=== PATIENT | female | born 1970 | race Caucasian/White ===

== ENCOUNTER 2022-11-06 08:55 | Outpatient (CLI) | payer BC, SELFPAY ==
--- NOTE | 2022-11-06 09:15 | MR_ITS ---
[facility] [address] [facility] [address] Phone:?[phone] Fax:?[phone] Referring Physician Information: En Tellez M.D. [address] [facility] [address] Phone:?[phone] Fax:?[phone] Patient:Nancy Rivera D.O.B:?1970 Sex:?Female Phone:?[phone] [facility] MRN:?[id number] Exam Date:?11/06/2022 EXAM: MRI EXAMINATION OF THE LEFT KNEE CLINICAL INFORMATION: Left knee pain. Chronic symptoms. Twisting injury. Evaluate medial meniscus tear or MCL injury. TECHNICAL INFORMATION: Coronal PD and STIR. Axial PD and T2 fat saturation. Sagittal PD and PD fat saturation images acquired. Comparison is made with July 02, 2018. INTERPRETATION: Bones: Mild marrow edema signal localized involving the posterior lateral aspect of the medial tibial plateau. There is no evidence for a fracture. No other abnormal bone marrow edema pattern is identified. Ligaments and tendons: Residua of a chronic sprain injury with mild thickening involving the proximal one third of the medial collateral ligament. The iliotibial band, fibular collateral ligament, biceps femoris tendon and popliteus tendon all are intact. Residua of an ACL injury with complete rupture just proximal to the midportion of the ligament. This may be more subacute. The posterior cruciate ligament is intact. Extensor Mechanism: The patellar and quadriceps tendons are intact. The medial and lateral retinacula are intact. Knee Joint: There is a small knee joint effusion. There is a moderate-sized popliteal cyst. Mild to moderate adjacent soft tissue fluid and edema signal in keeping with cyst leakage. There is no discrete loose body seen within the joint. Medial Compartment: There is peripheral vertical tearing involving the posterior body and continuing throughout the majority of the posterior horn medial meniscus. No displaced flap fragment or parameniscal cyst. There is no focal chondral defect. No other significant changes of chondromalacia. Lateral Compartment: There is no evidence for discrete lateral meniscal tear. No displaced flap fragment or parameniscal cyst. There is no focal chondral defect. No other significant changes of chondromalacia. Patellofemoral articulation: Series 4 image 11 demonstrates a tiny and shallow partial-thickness chondral fissure lateral to the midportion of midline patella. No other significant chondromalacia. CONCLUSION: 1. Residua of ACL injury with complete rupture just proximal to the midportion of the ligament. This is a new finding compared to the prior exam and may be more subacute. 2. Development of peripheral vertical tearing involving the posterior body and continuing throughout the majority of the posterior horn medial meniscus. 3. No lateral meniscal tear. The PCL is intact. 4. There is a tiny and shallow partial-thickness chondral fissure just lateral to the midline patella. 5. A moderate-sized popliteal cyst demonstrates mild to moderate leakage. KES Electronically signed on 11/08/2022 2:55:00 PM by Oscar Hernadez M.D.
== END 2022-11-06 08:56 | disposition home or self-care (01) ==
LOC: MRI 08:56
PROVIDERS: PCP Family Medicine; Visit Provider Family Medicine
DX: M25.562 Pain in left knee (principal); S83.512A Sprain of anterior cruciate ligament of left knee, initial encounter; S83.222A Peripheral tear of medial meniscus, current injury, left knee, initial encounter; M71.22 Synovial cyst of popliteal space [Baker], left knee
CPT/HCPCS: 73721

== ENCOUNTER 2023-01-25 09:31 | Outpatient (CLI) | payer BC, SELFPAY ==
--- NOTE | 2023-01-25 09:45 | CRLHL7_ITS ---
For Patients: As a result of the Cures Act, medical imaging exams and procedure reports are released immediately into your electronic medical record. You may view this report before your referring provider. If you have questions, please contact your health care provider. BILATERAL SCREENING MAMMOGRAM WITH COMPUTER-AIDED DETECTION AND TOMOSYNTHESIS TECHNIQUE: CC and MLO views were obtained. These mammographic images have been obtained using full-field digital technique. These mammographic images were interpreted with the benefit of computer-aided detection. Breast Tomosynthesis was used in this interpretation. COMPARISON FILM: 10/31/18, 03/21/17, 02/16/16. FINDINGS: There are scattered areas of fibroglandular density IMPRESSION: There is no radiographic evidence for malignancy. ASSESSMENT: BI-RADS Category 1: Negative RECOMMENDATION: Routine screening mammogram in 1 year. A lay language report of this examination will be provided to the patient. Adam Conley M.D. Diagnostic Radiologist [email or web address] EDISON/tia T: [id number] Transcribed: 2:03 p.jose daniel weber/Dictated by: Adam Conley MD @ 01/25/2023 11:39:00 AM (Electronically Signed)
== END 2023-01-25 09:32 | disposition home or self-care (01) ==
LOC: MAMMO 09:33
PROVIDERS: PCP Family Medicine; Visit Provider Family Medicine
DX: Z12.31 Encounter for screening mammogram for malignant neoplasm of breast (principal)
CPT/HCPCS: 77063; 77067

== ENCOUNTER 2023-02-05 06:15 | Day surgery (SDC) | payer BC, SELFPAY ==
[2023-02-05] VITALS (18 sets, daily range): BP systolic 104–153; BP diastolic 72–107; PULSE 63–86; RESP 14–16; TEMP 36–36.9; O2SAT 95–99; BMI 35.4
[2023-02-05] MEDS: LACTATED RINGERS 1000 ML 1,000 ML 100 ML IV ×2 (07:00→08:32)
[2023-02-05] MEDS: SODIUM CHLORIDE 0.9 % (FLUSH) 10 ML SYRINGE IVF (07:01)
[2023-02-05] MEDS: fentaNYL 100 MCG/2 ML inj IVP (07:18)
[2023-02-05] MEDS: MIDAZOLAM HCL 1 MG/ML inj IVP (07:19)
--- NOTE | 2023-02-05 07:20 | SUR.PREOP ---
TIME?OUT:?0717 PT/RN/MDA?VERIFICATION?OF?SURGICAL?SITE,?PROCEDURE,?AND?CONSENT OBTAINED?PRIOR?TO?INVASIVE?PROCEDURE. all in agreement.
--- NOTE | 2023-02-05 07:45 | CRLHL7_ITS ---
For Patients: As a result of the Cures Act, medical imaging exams and procedure reports are released immediately into your electronic medical record. You may view this report before your referring provider. If you have questions, please contact your health care provider. Indication: Left Knee ACL, Allograft, Medial Meniscus Repair vs PMM Technique: One fluoroscopic image of the left knee. Fluoroscopic time 9.5 seconds. IMPRESSION: Fluoroscopic guidance for left knee surgery. Dictated by Adam Conley MD @ 02/05/2023 9:23:45 AM (Electronically Signed)
[2023-02-05] MEDS: CEFAZOLIN 2 GM in 0.9 % SODIUM CHLORIDE Mini-bag 100 ML IVPB (07:52)
--- NOTE | 2023-02-05 08:03 | P.NB_ITS ---
Nerve Block Nerve Block Time Seen by Provider: 07: Date Seen: 02/05/23 Type of block requested by surgeon for post-operative analgesia: popliteal Time out performed: Yes Verification of patient name: Yes Verification of date of : Yes Site marking: site marked Name of person performing procedure: Navi Continuous monitoring Was continuous monitoring of O2 sat, B/P, biotechnologist, recorded every 15 minutes?: Yes Procedure Checklist: sterile prep, needles and gloves Ultrasound guided. Images saved: Yes Medications given in 5ml increments after negative aspiration: Ropivicaine %: 0.5 mL: 20 Needle gauge: 22 Patient tolerated procedure well: Yes Additional comments: Needle noted adjacent to nerve Block Charges Block Charge (with Pro Fee): Sciatic Nerve Use of Ultrasound Machine for Block: Yes- US Guidance/pain block
--- NOTE | 2023-02-05 08:04 | P.NB_ITS ---
Nerve Block Nerve Block Time Seen by Provider: 07:23 Date Seen: 02/05/23 Type of block requested by surgeon for post-operative analgesia: adductor canal Side: left Time out performed: Yes Verification of patient name: Yes Verification of date of : Yes Site marking: site marked Name of person performing procedure: Navi Continuous monitoring Was continuous monitoring of O2 sat, B/P, monitoring coordinator, recorded every 15 minutes?: Yes Procedure Checklist: sterile prep, needles and gloves Ultrasound guided. Images saved: Yes Medications given in 5ml increments after negative aspiration: Ropivicaine %: 0.5 mL: 20 Needle gauge: 20 Decadron (mg): 10 Precedex (mcg): 25 Patient tolerated procedure well: Yes Additional comments: Needle noted adjacent to nerve Block Charges Block Charge (with Pro Fee): Femoral Nerve Use of Ultrasound Machine for Block: Yes- US Guidance/pain block
--- NOTE | 2023-02-05 08:04 | W.ANESCHARGE ---
Anesthesia Charges Start Date/Time Anesthesia Start Date: 02/05/23 Anesthesia Start Time: 07:31 Stop Date/Time Anesthesia Stop Date: 02/05/23 Anesthesia Stop Time: 09:32
--- NOTE | 2023-02-05 09:09 | P.ORPRC_ITS ---
Procedure Note Date of procedure: 02/05/23 Procedure: PREOPERATIVE DIAGNOSIS: 1. Left knee ACL tear 2. Left knee medial meniscus tear, somewhat complex pattern posterior horn to midbody-approaching posterior root but root intact. POSTOPERATIVE DIAGNOSIS: 1. Left knee ACL tear 2. Left knee medial meniscus tear, somewhat complex pattern posterior horn to midbody-approaching posterior root but root intact. PROCEDURE: 1. Left knee arthroscopically assisted ACL reconstruction with graftlink allograft 2. Left knee arthroscopic partial medial meniscectomy 3. 20944 - intraoperative fluoroscopy up to 1 hour. SURGEON: Rodrigo Esquivel M.D. INDUSTRIAL SALES REPRESENTATIVE: Leeroy JOHNSTON; Zac Peng Pa-c. Of note, an pharmacy sales assistant was critical for this case to aid in patient positioning, knee manipulation, instrument exchange, and closure. ANESTHESIA: General plus adductor canal block EBL: 10 mL TOURNIQUET: 70 min at 300 torr IMPLANTS: Arthrex femoral tight rope button and tibial ABS button along with a backup on the tibial fixation with a 4.75 mm peak swivelock suture anchor and internal brace COMPLICATIONS: None evident INDICATIONS: The patient is a pleasant 52-year-old female. They have experienced a left knee injury resulting in knee instability. MRI was obtained and confirmed complete ACL disruption, consistent with the physical exam. The MRI also suggested a medial meniscus tear of the posterior horn approaching the midbody. Given the findings, as well as the patient's desire to remain physically active with cutting/pivoting type activities, surgery was recommended. FINDINGS: Exam under anesthesia revealed positive China's grade 2 B. Thud- clunk pivot shift. Stable posterior drawer. Stable to varus and valgus stress at 0 and 30?. The diagnostic arthroscopy showed ACL tear with a positive empty wall sign. PCL was intact and robust. Grade 3 chondromalacia patella median ridge in a small subcentimeter region. Otherwise healthy trochlear groove articular cartilage. Healthy articular cartilage medial compartment. Complex tearing the posterior horn approaching midbody medial meniscus. Posterior root was intact otherwise. Lateral compartment showed healthy articular cartilage and intact lateral meniscus with only mild fraying near the posterior root and anterior root. DESCRIPTION OF PROCEDURE: After a thorough discussion of risks, benefits, and alternatives, the patient was brought to the operating room and placed upon the operating table. Induction of anesthesia was undertaken as previously noted. 2 g IV Ancef was administered within 1 hr of incision preoperatively. Appropriate time-out was performed identifying proper patient, site, and procedure. The left lower extremity was prepped and draped in the appropriate sterile fashion using ChloraPrep. The limb was exsanguinated and tourniquet inflated. Anterolateral and anteromedial portals were established with an 11 blade, and a diagnostic arthroscopy was performed. This identified the findings as noted above. Following the diagnostic arthroscopy, a partial medial meniscectomy was performed with a combination of basket forceps and torpedo shaver. After this, the meniscus was reprobed and found be stable. We then turned our attention to the ACL reconstruction. The graft had been thawing on the back table inside the package in warm saline. Once this was properly thawed, it was prepared with the passing sutures and the femoral tight rope button. It was then placed on tension, and sized. It was approximately a 9 mm diameter graft. While the graft was being prepared, simultaneously, the remaining ACL stump was debrided with a combination of shaver and basket forceps. After evaluating the current fibers of the existing ACL stump, we drilled the tunnels in an independent manner for anatomic tunnel positioning. A 9 mm flip cutter was utilized for the femoral tunnel and for the tibial tunnel. After preparing the graft and drilling tunnels, the graft was passed without difficulty and the femoral button was directly visualized to exit the femoral tunnel and the button was flipped. C-arm fluoroscopic imaging confirmed proper flipping of the femoral button and was apposed against the femoral cortex. The knee was then cycled 35+ times with tension on the graft. The tibial ABS button was then placed, and the tibial sutures secured over this with the knee in full extension. The white sutures were tied over top of the button, and all 4 suture strands were backed up through 4.75 mm peek SwiveLock suture anchor. Excellent tension on the graft was achieved. A Chian test was performed again, and found to be stable grade 1A. The graft was reprobed on the inside of the knee and again found to be taut and stable. At this stage, closure was performed with 2-0 Vicryl and 4-0 Monocryl to close the subcutaneous and subcuticular layers, respectively. Dressings were applied, tourniquet deflated, and the T scope hinged knee brace was applied. The patient was awoken from anesthesia and transferred to the PACU in stable condition. PLAN: 1. Toe-touch weightbear operative extremity until quad control is restored. Crutch / walker ambulation assistance PRN. 2. Ice, acetominophen and/or ibuprofen, and oxycodone for pain as needed. 3. Knee range of motion and quad sets/straight leg raise regularly 4. Follow up with PA visit in 1-2 weeks for a wound check.
--- NOTE | 2023-02-05 09:36 | W.ANESCHARGE ---
Anesthesia Charges Start Date/Time Anesthesia Start Date: 02/05/23 Anesthesia Start Time: 07:31 Stop Date/Time Anesthesia Stop Date: 02/05/23 Anesthesia Stop Time: 09:32
--- NOTE | 2023-02-05 10:11 | SUR.OPER ---
PATIENT QUESTIONS ANSWERED SATISFACTORILY PREOPERATIVELY.? PATIENT BROUGHT TO OR #2 PER CART.? Patient positioned supine on OR #2 bed.? The perioperative?team supported arms bilaterally on arm boards.? Final approval of positioning by surgeon.? CONTINUOUS IRRIGATION OF THE LEFT KNEE DURING THE PROCEDURE WITH NACL.
[2023-02-05] MEDS: IBUPROFEN 200 MG TABLET 400 MG PO (10:52)
--- NOTE | 2023-02-05 12:16 | SUR.PHASEII ---
1045: upon arrival from PACU pt reports bee sting type pain on left lateral knee. Under cruz wrap and dressing could feel the boarder of the dressing. readjusted the dressing. incisional pain she is feeling. see EMAR.
== END 2023-02-05 12:19 | disposition home or self-care (01) ==
PROVIDERS: PCP Family Medicine; Visit Provider Orthopaedic Surgery Sports Medicine
PROC: (CPT 27428; principal; 2023-02-05 07:45)
DX: S83.512A Sprain of anterior cruciate ligament of left knee, initial encounter (principal); S83.232A Complex tear of medial meniscus, current injury, left knee, initial encounter; G89.18 Other acute postprocedural pain
CPT/HCPCS: 29888; 29881; 01400; 64445; 64447; 73560; 76000; 76942; A9270; C1713; C1762; J0690; J1100; J2250; J2371; J2405; J2704; J2795; J3010; J7120; L1833

== ENCOUNTER 2023-03-20 11:14 | Emergency (ER) | payer BC, SELFPAY ==
[2023-03-20 11:37] VITALS: BP 149/104; PULSE 98; RESP 16; TEMP 35.9; O2SAT 98; BMI 36.3
[2023-03-20 13:23] VITALS: BP 144/89; PULSE 99; RESP 12; TEMP 36.8; O2SAT 97
--- NOTE | 2023-03-20 14:48 | ED_ITS ---
HPI - General Adult General Chief complaint: Neck Injury/Pain Stated complaint: Pinched nerve Time Seen by Provider: 03/20/23 14:46 History of Present Illness HPI narrative: This is a pleasant 52-year-old female with a past medical history thoracic back pain, hyperlipidemia, migraine headaches, and C7 cervical radiculopathy who presents to the ER today with neck pain. Per the patient, she reports she began to have neck pain radiating down her left arm about a month ago in early February without any own trauma. She was evaluated at that time by her doctors and thought to have cervical radiculopathy. Her symptoms responded remarkably well to a burst of steroids and initiation of gabapentin. She had been essentially pain-free for couple of weeks until she had recurrence of pain when she woke up after sleeping Sunday night. She is having bad pain in the lateral side of her neck that radiates down the lateral side of her left shoulder, posterior arm, and down toward the radial side of her forearm. The pain is achy and burning. No associated numbness or weakness. No pain down the right arm. No other neurologic symptoms. No headache. No trauma. No fever. In review of medical record I see that she saw her primary care provider, Dr. Staples, yesterday for this neck pain. He has ordered an outpatient MRI and that is scheduled for 04/02. He start her on prednisone 60 mg daily, yesterday. According to those records she had been taking gabapentin for her pain, but it is ineffective. She has been taking increased dose gabapentin but finds it to be ineffective. She is scheduled for an MRI on 03/12/27 but cannot wait that long because of the intensity of her pain. Related Data Home Medications Medication Instructions Recorded Confirmed cholecalciferol (vitamin D3) 125 5,000 unit PO DAILY 10/31/22 03/20/23 mcg (5,000 unit) tablet sumatriptan succinate 100 mg tablet 100 mg PO .As Needed as needed PRN 10/31/22 03/20/23 green tea leaf extract 250 mg 250 mg PO .QD 01/23/23 03/20/23 capsule (Green Tea) Previous Rx's Medication Instructions Recorded duloxetine 60 mg capsule,delayed 60 mg PO DAILY #90 caps 01/23/23 release alprazolam 0.5 mg tablet 0.5 mg PO BID PRN anxiety #10 tabs 02/21/23 gabapentin 300 mg capsule 300 mg PO TID PRN pain #60 caps 02/21/23 prednisone 50 mg tablet 50 mg PO QDAY #7 tabs 03/19/23 hydromorphone 2 mg tablet 2 mg PO Q4-6H PRN pain #10 tabs 03/20/23 (Dilaudid) Allergies Allergy/AdvReac Type Severity Reaction Status Date / Time No Known Drug Allergies Allergy Verified 03/19/23 09:11 [facility] Medical History (Updated 03/20/23 @ 15:22 by Mike Yi MD) Left ACL tear ?S83.512A - Sprain of anterior cruciate ligament of left knee, initial encounter (ICD-10) Cervical radiculopathy at C7 ?M54.12 - Radiculopathy, cervical region (ICD-10) Gastrointestinal disorder ?K92.9 - Disease of digestive system, unspecified (ICD-10) Migraine ?G43.909 - Migraine, unspecified, not intractable, without status migrainosus (ICD-10) Sore throat ?J02.9 - Acute pharyngitis, unspecified (ICD-10) Menstrual migraine ?G43.829 - Menstrual migraine, not intractable, without status migrainosus (ICD-10) Deep vein thrombosis (DVT) ?I82.409 - Acute embolism and thrombosis of unspecified deep veins of unspecified lower extremity (ICD-10) Surgical History (Updated 03/12/23 @ 01:25 by Adam Staples MD) H/O arthroscopy of left knee (02/05/23) ?Z98.890 - Other specified postprocedural states (ICD-10) H/O dilation and curettage (06/24/19) ?Z98.890 - Other specified postprocedural states (ICD-10) History of section (1989) ?Z98.891 - History of uterine scar from previous surgery (ICD-10) Family History Aunt Breast cancer Mother Coronary artery disease, Onset Age: 49 Father Hemochromatosis Mother Myocardial infarction, Onset Age: 50 Other Adopted Colonic polyp Social History (Updated 01/23/23 @ 13:55 by Angela Mayer ~ [facility]) 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: , 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, 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 Social drinker 2-4/week Does not have regular exercise program What is your current living situation?: I presently have a place to live Problems where you live: no known problems In the past 12 months, utilities in danger of being shut off: no In past 12 months, lack of transportation kept you from medical appts, meetings, work, or getting things needed for daily living: no In the past 12 mos, have been you worried that your food would run out before you had money to buy more?: never true In the past 12 mos, the food you bought just didn't last and you didn't have money to buy more?: never true Smoking Status: Never smoker Do you use any of these nicotine containing products: None Second hand tobacco smoke exposure: No How often do you have a drink containing alcohol: 2-3 times a week Alcohol type: hard liquor How many standard drinks containing alcohol do you have on a typical day: 5 or 6 How often do you have six or more drinks on one occasion: Weekly AUDIT-C Alcohol total score: 8 Non-prescribed substance use: marijuana (any form) Caffeine: Yes (coffee) How often does anyone, including family, friends and others, physically hurt you : never How often does anyone, including family, friends and others, insult or talk down to you: never How often does anyone, including family, friends and others, threaten you with harm: never How often does anyone, including family, friends and others, scream or curse at you: never Little interest or pleasure in doing things: more than half the days Feeling down, depressed, or hopeless: more than half the days service: No Exam Narrative: Exam Narrative: Constitutional: Appears well-developed and well-nourished. Alert. Conversant, but uncomfortable appearing. Non toxic. HENT: Head: Atraumatic. Nose: Nose normal. Mouth/Throat: Oral mucosa is clear and moist. no trismus. Pharynx normal. Eyes: Conjunctivae normal. EOM normal. Pupils equal, round, and reactive to light. No scleral icterus. Neck: Normal range of motion. Neck supple. No tracheal deviation present. Mild tenderness over left lateral neck and trapezius. Patient complains of pain radiating from there down the lateral side of her deltoid, lateral upper arm, and radial side of her forearm. Cardiovascular: Normal rate, regular rhythm. No gallop. No friction rub. No murmur heard. Symmetric radial artery pulses Pulmonary/Chest: Effort normal. No stridor. No respiratory distress. No wheezes. No rales. No rhonchi . No tenderness. Abdominal: Soft. Bowel sounds normal. No distension. No mass. No tenderness. No rebound. No guarding. Musculoskeletal: RUE: Normal range of motion. No tenderness. No deformity LUE: Normal range of motion. No tenderness. No deformity RLE: Normal range of motion. No edema. No tenderness. No deformity LLE: Normal range of motion. No edema. No tenderness. No deformity Lymph: No cervical adenopathy. Neurological: Alert and oriented to person, place, and time. Normal strength. CN II-VII intact. No sensory deficit. GCS eye subscore is 4. GCS verbal subscore is 5. GCS motor subscore is 6. Normal coordination Mental status normal. Attention normal. Alert and oriented x3. GCS 15. Memory normal. Speech fluent. Cognition normal. Cranial Nerves intact II-XII except I did not formally test gag or visual acuity. EOMI. Palate elevates symmetrically and tongue protrudes in the midline. Strength: 5/5 trapezius on the right and left 5/5 deltoid on the right and left 5/5 biceps on the right and left 5/5 triceps on the right and left 5/5 health care social worker on the right and left 5/5 thumb opposition on the right and le ft 5/5 finger abduction on the right and le ft 5/5 strength in both lower extremities. Sensation intact to light touch in both upper extremities (C4-T1) Sensation intact to light touch in Both lower extremities (L4-S1). coordination normal. Gait normal. Skin: Skin is warm and dry. No rash noted. No pallor. Normal capillary refill. Psychiatric: Normal mood. Normal affect, allowing for pain. Const: Vital Signs, click to edit/add: Vital Signs - 24 hr 03/20/23 11:37 03/20/23 13:23 Temperature 96.6 F L 98.3 F Pulse Rate [Right Pulse Oximeter] 98 99 Respiratory Rate 16 12 Blood Pressure [Ri ght Upper Arm] 149/104 H 144/89 H Pulse Oximetry 98 97 Oxygen Delivery Me thod Room Air Room Air Course Vital Signs Vital signs: Initial Vital Signs Temperature 96.6 F L 03/20/23 11:37 Temperature Source Temporal Artery Scan 03/20/23 11:37 Pulse Rate 98 03/20/23 11:37 Pulse Rhythm Regular 03/20/23 11:37 Respiratory Rate 16 03/20/23 11:37 Blood Pressure 149/104 H 03/20/23 11:37 Blood Pressure Mean 119 H 03/20/23 11:37 Blood Pressure Position Sitting 03/20/23 11:37 Pulse Oximetry 98 03/20/23 11:37 Oxygen Delivery Method Room Air 03/20/23 11:37 Vital Signs Temperature 96.6 F L 03/20/23 11:37 Pulse Rate 98 03/20/23 11:37 Respiratory Rate 16 03/20/23 11:37 Blood Pressure 149/104 H 03/20/23 11:37 Pulse Oximetry 98 03/20/23 11:37 Oxygen Delivery Method Room Air 03/20/23 11:37 Temperature 98.3 F 03/20/23 13:23 Pulse Rate 99 03/20/23 13:23 Respiratory Rate 12 03/20/23 13:23 Blood Pressure 144/89 H 03/20/23 13:23 Pulse Oximetry 97 03/20/23 13:23 Oxygen Delivery Method Room Air 03/20/23 13:23 Medical Decision Making MDM Narrative Medical decision making narrative: 52-year-old female presents to the ER today with pain from her left neck radiating down her left arm. Her current episode of pain began about 3 days ago on Sunday without any trauma, after she awoke from sleep. She had had a similar episode of pain about a month or 6 weeks ago that resolved with conservative treatment with steroids and pain medication (gabapentin). Her current episode is much more severe with more unrelenting pain that disrupts her sleep and activities of daily living. Fortunately she has not have any symptoms of an neurologic deficit in her arm or legs. Clinical suspicion here is for a cervical radiculopathy, likely affecting the C6 dermatome. At this point I do not think she has cervical dissection, vertebral dissection. Doubt any C-spine injury, in the absence of trauma. No evidence for shingles or cellulitis. No evidence for pharyngitis or deep space neck infection or other infection causing her symptoms. At this point only she need CTA, CT neck soft tissue, laboratory workup. Will try increasing her home pain medications by the addition of Dilaudid. Discussed with the patient that opiates are sometimes ineffective in no related pain. We also discussed sedation, drowsiness, constipation, addiction, and other potential opiate side effects. Patient also is distressed by the prospect of having to wait 2 weeks get her MRI. I was able to call the MRI department today. They have an opening tomorrow at 6:15 p.m. on 03/21. They will add the patient to the schedule. We were able to schedule her for that MRI which will be tomorrow 03/21 at 6:15 p.m.. Discussed this plan of care with the patient. She believes with Dilaudid she will be able to make through until tomorrow to get her MRI done as an outpatient. She will follow up her primary care providers to get the results of that MRI. Precautions for return to the ER reviewed questions answered. Discharge Plan Discharge Clinical Impression: Cervical radiculopathy Patient Disposition: Home, Self-Care Condition: Stable Instructions: Cervical Radiculopathy (ED) Additional Instructions: You are scheduled to have an MRI of your neck tomorrow 03/21 at 6:00 p.m.. Come back to the [facility] in check in through the ER triage desk to get an outpatient MRI tomorrow at 6:00 p.m.. Please bring a patient transportation driver with you if you have taking any meds that cause drowsiness. If you have worsening pain, weakness down your arm, high fever, or any concerns, come back to the ER right away. Follow-up with Dr. Staples or your regular doctor as soon as possible. Stop oxycodone and switched to Dilaudid. This is a stronger version of pain medicine. Do not mix the 2 meds together because they can cause excessive drowsiness. Use caution with opiate pain killers because they cause drowsiness, dizziness, vomiting, constipation, and can be addictive. Prescriptions: New hydromorphone [Dilaudid] 2 mg tablet 2 mg PO Q4-6H PRN (Reason: pain) Qty: 10 0RF No Action sumatriptan succinate 100 mg tablet 100 mg PO .As Needed as needed PRN Rx Instructions: ONE TAB AT ONSET OF HEADACHE, MAY REPEAT ONCE IN 2 HRS, MAX 200 MG/24 HRS cholecalciferol (vitamin D3) 125 mcg (5,000 unit) tablet 5,000 unit PO DAILY prednisone 50 mg tablet 50 mg PO QDAY Qty: 7 0RF green tea leaf extract [Green Tea] 250 mg capsule 250 mg PO .QD duloxetine 60 mg capsule,delayed release(DR/EC) 60 mg PO DAILY Qty: 90 3RF alprazolam 0.5 mg tablet 0.5 mg PO BID PRN (Reason: anxiety) Qty: 10 0RF gabapentin 300 mg capsule 300 mg PO TID PRN (Reason: pain) Qty: 60 1RF Follow Up/Referrals: En Tellez MD [Primary Care Provider] - Stand Alone Forms: [id number] Info Instructions
== END 2023-03-20 15:40 | disposition home or self-care (01) ==
LOC: ED 15:24
PROVIDERS: Emergency Provider Emergency Medicine; PCP Family Medicine
DX: M54.12 Radiculopathy, cervical region (principal)
CPT/HCPCS: 99283

== ENCOUNTER 2023-03-21 12:27 | Emergency (ER) | payer BC, SELFPAY ==
[2023-03-21 12:33] VITALS: BP 143/94; PULSE 92; RESP 18; TEMP 36.7; O2SAT 93; BMI 36.3
--- NOTE | 2023-03-21 12:55 | ED_ITS ---
HPI - General Adult General Chief complaint: Neck Injury/Pain Stated complaint: Pinched nerve in neck Time Seen by Provider: 03/21/23 12:30 History of Present Illness HPI narrative: Patient is a 52-year-old female has had suspect left cervical radiculopathy. She is scheduled for an MRI at 6:00 p.m. [facility]. They live in [facility]. She comes back today after being here yesterday with continued pain. The dilaudid she took did not really help that much. She is on prednisone still and on gabapentin. She had this happened earlier a month or so ago and did get relief from the prednisone and gabapentin. She has had no real weakness in her arm but describes pain in her neck left side radiating down to her shoulder and into her forearm and into her medial hand. Dr. Yi thought this might be a C6 radiculopathy I would agree that makes sense. Again she has had no weakness or arm but she has been unable to find a comfortable position and it is painful. No swelling of the arm, no history of bleeding or clotting problems. She had some mild degenerative change on her x-ray yesterday. Related Data Home Medications Medication Instructions Recorded Confirmed cholecalciferol (vitamin D3) 125 5,000 unit PO DAILY 10/31/22 03/20/23 mcg (5,000 unit) tablet sumatriptan succinate 100 mg tablet 100 mg PO .As Needed as needed PRN 10/31/22 03/20/23 green tea leaf extract 250 mg 250 mg PO .QD 01/23/23 03/20/23 capsule (Green Tea) Previous Rx's Medication Instructions Recorded duloxetine 60 mg capsule,delayed 60 mg PO DAILY #90 caps 01/23/23 release alprazolam 0.5 mg tablet 0.5 mg PO BID PRN anxiety #10 tabs 02/21/23 gabapentin 300 mg capsule 300 mg PO TID PRN pain #60 caps 02/21/23 prednisone 50 mg tablet 50 mg PO QDAY #7 tabs 03/19/23 hydromorphone 2 mg tablet 2 mg PO Q4-6H PRN pain #10 tabs 03/20/23 (Dilaudid) Allergies Allergy/AdvReac Type Severity Reaction Status Date / Time No Known Drug Allergies Allergy Verified 03/19/23 09:11 Review of Systems Status of ROS: Reports: 6 or more systems reviewed and unremarkable except as noted in History and below PFSH [facility] Medical History Left ACL tear ?S83.512A - Sprain of anterior cruciate ligament of left knee, initial encounter (ICD-10) Cervical radiculopathy at C7 ?M54.12 - Radiculopathy, cervical region (ICD-10) Migraine ?G43.909 - Migraine, unspecified, not intractable, without status migrainosus (ICD-10) Deep vein thrombosis (DVT) ?I82.409 - Acute embolism and thrombosis of unspecified deep veins of unspecified lower extremity (ICD-10) Surgical History H/O arthroscopy of left knee (02/05/23) ?Z98.890 - Other specified postprocedural states (ICD-10) H/O dilation and curettage (06/24/19) ?Z98.890 - Other specified postprocedural states (ICD-10) History of section (1989) ?Z98.891 - History of uterine scar from previous surgery (ICD-10) Family History Aunt Breast cancer Mother Coronary artery disease, Onset Age: 49 Father Hemochromatosis Mother Myocardial infarction, Onset Age: 50 Other Adopted Colonic polyp Social History Narrative: , 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, 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-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 Social drinker 2-4/week Does not have regular exercise program What is your current living situation?: I presently have a place to live Problems where you live: no known problems In the past 12 months, utilities in danger of being shut off: no In past 12 months, lack of transportation kept you from medical appts, meetings, work, or getting things needed for daily living: no In the past 12 mos, have been you worried that your food would run out before you had money to buy more?: never true In the past 12 mos, the food you bought just didn't last and you didn't have money to buy more?: never true Smoking Status: Never smoker Do you use any of these nicotine containing products: None Second hand tobacco smoke exposure: No How often do you have a drink containing alcohol: 2-3 times a week Alcohol type: hard liquor How many standard drinks containing alcohol do you have on a typical day: 5 or 6 How often do you have six or more drinks on one occasion: Weekly AUDIT-C Alcohol total score: 8 Non-prescribed substance use: marijuana (any form) Caffeine: Yes (coffee) How often does anyone, including family, friends and others, physically hurt you : never How often does anyone, including family, friends and others, insult or talk down to you: never How often does anyone, including family, friends and others, threaten you with harm: never How often does anyone, including family, friends and others, scream or curse at you: never Little interest or pleasure in doing things: more than half the days Feeling down, depressed, or hopeless: more than half the days service: No Exam Narrative: Exam Narrative: Objective: Patient has mild tenderness along her cervical strap muscles on the lower left She has normal strength sensation in the upper extremity on the left, normal sensation no weakness 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 Vital signs show no fever. No swelling of the hand or arm. No redness or erythema. Const: Vital Signs, click to edit/add: Vital Signs - 24 hr 03/21/23 12:33 03/21/23 13:17 03/21/23 14:22 Temperature 98.1 F Pulse Rate 92 Pulse Rate [Pulse Oximeter] 92 85 Respiratory Rate 18 18 Blood Pressure 118/88 Blood Pressure [Ri ght Upper Arm] 143/94 H 138/93 H Pulse Oximetry 93 93 94 Oxygen Delivery Me thod Room Air Room Air 03/21/23 15:05 Temperature Pulse Rate Pulse Rate [Pulse Oximeter] 96 Respiratory Rate 20 Blood Pressure Blood Pressure [Ri ght Upper Arm] 122/89 Pulse Oximetry 94 Oxygen Delivery Me thod Room Air Course Vital Signs Vital signs: Initial Vital Signs Temperature 98.1 F 03/21/23 12:33 Temperature Source Temporal Artery Scan 03/21/23 12:33 Pulse Rate 92 03/21/23 12:33 Pulse Rhythm Regular 03/21/23 12:33 Respiratory Rate 18 03/21/23 12:33 Blood Pressure 143/94 H 03/21/23 12:33 Blood Pressure Mean 110 H 03/21/23 12:33 Blood Pressure Position Supine 03/21/23 12:33 Pulse Oximetry 93 03/21/23 12:33 Oxygen Delivery Method Room Air 03/21/23 12:33 Vital Signs Temperature 98.1 F 03/21/23 12:33 Pulse Rate 92 03/21/23 12:33 Respiratory Rate 18 03/21/23 12:33 Blood Pressure 143/94 H 03/21/23 12:33 Pulse Oximetry 93 03/21/23 12:33 Oxygen Delivery Method Room Air 03/21/23 12:33 Temperature 98.1 F 03/21/23 12:33 Pulse Rate 96 03/21/23 15:05 Respiratory Rate 20 03/21/23 15:05 Blood Pressure 122/89 03/21/23 15:05 Pulse Oximetry 94 03/21/23 15:05 Oxygen Delivery Method Room Air 03/21/23 15:05 Medications Administered Medications: Discontinued Medications Generic Name Dose Route Start Last Admin Trade Name Freq PRN Reason Stop Dose Admin Aspirin 324 mg 03/21/23 13:23 03/21/23 13:42 Aspirin 81 Mg Tab.Chew PO 03/21/23 13:24 324 mg ONCE ONE Administration Ketorolac Tromethamine 60 mg 03/21/23 13:15 03/21/23 13:19 Ketorolac 60 Mg/2 Ml Inj IM 03/21/23 13:16 60 mg ONCE ONE Administration Morphine Sulfate 10 mg 03/21/23 13:04 03/21/23 13:23 Morphine 10 Mg/Ml Inj IM 03/21/23 13:05 10 mg ONCE ONE Administration Medical Decision Making [facility] Narrative Medical decision making narrative: 52-year-old female with what appears to be a left cervical radiculopathy. MRI s can be the treatment of and procedure of diagnostically of choice. Would in the interim give her morphine 10 mg IM and Toradol 60 mg IM. She has Dilaudid at home for tonight, follow-up with primary care doctor tomorrow by phone to get results. Disposition pending findings at this point I do not think other diagnostic studies are indicated as she has her MRI at 6:00 p.m.. Addendum 1:27 p.m. called back to the room the patient is concerned about her left anterior chest, although it does radiate from her neck and down her left arm. She is more concerned about a cardiac issue and wonders about getting an EKG. I think that is very reasonable will get a chest x-ray one view, troponin I, will give her aspirin 324 chewable and await the pain medication to work and disposition pending findings will also check laboratory studies including CBC Chem profile CRP and D-dimer. Addendum 3:00 p.m. EKG by my read shows normal sinus rhythm no acute ST T wave changes. The patient has a negative troponin, negative D-dimer, negative CBC and ER profile negative liver function tests, negative CRP. Patient's chest x- ray was unremarkable. I think at this point we can discharge her to home she has her MRI scan in a couple of hours. She can continue dilaudid, prednisone, gabapentin at home. Would recommend calling her regular clinic Dr. Staples is office and get a report tomorrow and have them call her with the results as it is available. Lab Data Labs: Lab Results 03/21/23 Range/Units 13:50 WBC 9.18 (4.50-11.00) K/uL RBC 5.02 (4.00-5.20) m/uL Hgb 16.4 H (12.0-16.0) gm/dL Hct 48.1 (33.0-51.0) % MCV 96 (80-100) fL MCH 33 (26-34) pg MCHC 34 (32-36) gm/dL RDW Coeff of Sowmya 11.8 (11.5-15.5) % Plt Count 264 (140-440) K/uL Neut % (Auto) 86.2 H (42.0-72.0) % Lymph % (Auto) 11.3 L (20-44) % Cataño % (Auto) 1.1 (0.0-11.0) % Eos % (Auto) 0.1 (0.0-7.0) % Baso % (Auto) 0.1 (0.0-3.0) % Neut # (Auto) 7.90 H (1.7-7.0) K/uL Lymph # (Auto) 1.00 (0.90-2.90) K/uL Cataño # (Auto) 0.10 (0.00-0.90) K/UL Eos # (Auto) 0.01 (0.00-0.50) K/uL Baso # (Auto) 0.01 (0.00-0.30) K/uL Abs Immat Gran (auto) 0.11 (0.00-0.30) K/uL Imm/Tot Granulo (auto) 1.2 % Diff Slide Review Acceptable Review (Acceptable) D-Dimer Quant (PE/DVT) 0.32 (0.00-0.50) ug/ml Sodium 142 (135-149) mmol/L Potassium 4.2 (3.6-5.1) mmol/L Chloride 105 (96-114) mmol/L Carbon Dioxide 26 (20-32) mmol/L Anion Gap 11 (7-15) mEq/L BUN 16 (7-30) mg/dL Creatinine 0.6 (0.5-1.5) mg/dL Estimated Creat Clear 97.57 Estimated GFR 107 ml/min Glucose 141 H (60-115) mg/dL Calcium 9.4 (8.4-10.6) mg/dL Total Bilirubin 0.4 (0.1-1.5) mg/dL Direct Bilirubin 0.0 (0.0-0.5) mg/dL AST 24 (12-35) U/L ALT 24 (4-35) U/L Alkaline Phosphatase 69 (40-150) U/L Troponin I < 0.01 L (0.01-0.04) ng/mL C-Reactive Protein 0.6 (0.5-1.0) mg/dL NT-Pro-B Natriuret Pep < 20 pg/mL Total Protein 7.4 (6.0-8.3) g/dL Albumin 4.8 (3.3-5.0) g/dL Discharge Plan Discharge Clinical Impression: Left cervical radiculopathy Patient Disposition: Home w/ Parent or Adult Condition: Stable Additional Instructions: Continue prednisone gabapentin, continue Dilaudid as needed, appointment for MRI tonight as planned. Follow-up by phone with primary care doctor tomorrow. Activity Level: Light activity Discharge Diet: Regular Prescriptions: No Action sumatriptan succinate 100 mg tablet 100 mg PO .As Needed as needed PRN Rx Instructions: ONE TAB AT ONSET OF HEADACHE, MAY REPEAT ONCE IN 2 HRS, MAX 200 MG/24 HRS cholecalciferol (vitamin D3) 125 mcg (5,000 unit) tablet 5,000 unit PO DAILY prednisone 50 mg tablet 50 mg PO QDAY Qty: 7 0RF green tea leaf extract [Green Tea] 250 mg capsule 250 mg PO .QD duloxetine 60 mg capsule,delayed release(DR/EC) 60 mg PO DAILY Qty: 90 3RF hydromorphone [Dilaudid] 2 mg tablet 2 mg PO Q4-6H PRN (Reason: pain) Qty: 10 0RF alprazolam 0.5 mg tablet 0.5 mg PO BID PRN (Reason: anxiety) Qty: 10 0RF gabapentin 300 mg capsule 300 mg PO TID PRN (Reason: pain) Qty: 60 1RF Follow Up/Referrals: En Tellez MD [Primary Care Provider] - Stand Alone Forms: [employer] Info Instructions
[2023-03-21 13:17] VITALS: BP 138/93; PULSE 85; O2SAT 93
[2023-03-21] MEDS: KETOROLAC 60 MG/2 ML inj IM (13:19)
[2023-03-21] MEDS: MORPHINE 10 MG/ML inj IM (13:23)
--- NOTE | 2023-03-21 13:23 | CRLHL7_ITS ---
For Patients: As a result of the Century Cures Act, medical imaging exams and procedure reports are released immediately into your electronic medical record. You may view this report before your referring provider. If you have questions, please contact your health care provider. Indication: Chest pain Technique: Chest 1 view Comparison: None Findings/Impression: Cardiovascular and mediastinum: Heart size and vasculature are normal in caliber and appearance. Lungs and pleural space: Lungs are clear. No sign of infiltrate or mass. No sign of pleural effusion. No pneumothorax. Bones and soft tissues: No acute findings. Dictated by Xu Lin MD @ 03/21/2023 2:06:59 PM (Electronically Signed)
[2023-03-21] MEDS: ASPIRIN 81 MG TAB.CHEW 324 MG PO (13:42)
[2023-03-21 14:02] LABS: Basophils Absolute Auto 0.01 K/uL (0.00-0.30); Basophils Percent Auto 0.1 % (0.0-3.0); Eosinophils Absolute Auto 0.01 K/uL (0.00-0.50); Eosinophils Percent Auto 0.1 % (0.0-7.0); Hematocrit 48.1 % (33.0-51.0); Hemoglobin* 16.4 gm/dL (12.0-16.0); Immature Granulocytes Abs Auto 0.11 K/uL (0.00-0.30); Immature Granulocytes Pct Auto 1.2 %; Lymphocytes Percent Auto 11.3 % (20-44); Mean Corpuscular HGB Conc 34 gm/dL (32-36); Mean Corpuscular Hemoglobin 33 pg (26-34); Mean Corpuscular Volume 96 fL (80-100); Monocytes Percent Auto 1.1 % (0.0-11.0); Neutrophils Percent Auto 86.2 % (42.0-72.0); Platelet Count* 264 K/uL (140-440); RDW Coefficient of Variation % 11.8 % (11.5-15.5); Red Blood Count 5.02 m/uL (4.00-5.20); White Blood Count* 9.18 K/uL (4.50-11.00)
[2023-03-21 14:08] LABS: Slide Review Reflex Yes
[2023-03-21 14:21] LABS: Chloride* 105 mmol/L (96-114)
[2023-03-21 14:22] VITALS: BP 118/88; PULSE 92; RESP 18; O2SAT 94
[2023-03-21 14:22] LABS: Albumin* 4.8 g/dL (3.3-5.0); Sodium* 142 mmol/L (135-149)
[2023-03-21 14:23] LABS: Potassium* 4.2 mmol/L (3.6-5.1)
[2023-03-21 14:24] LABS: Creatinine* 0.6 mg/dL (0.5-1.5); Est. Creatinine Clearance* 97.57; Estimated Glomerular Filt Rate 107 ml/min
[2023-03-21 14:25] LABS: Alanine Aminotransferase* 24 U/L (4-35); Alkaline Phosphatase* 69 U/L (40-150); Anion Gap 11 mEq/L (7-15); Aspartate Amino Transferase* 24 U/L (12-35); Bilirubin Total* 0.4 mg/dL (0.1-1.5); Blood Urea Nitrogen* 16 mg/dL (7-30); Carbon Dioxide* 26 mmol/L (20-32); Total Protein* 7.4 g/dL (6.0-8.3)
[2023-03-21 14:26] LABS: Calcium* 9.4 mg/dL (8.4-10.6); D Dimer Quantitative* 0.32 ug/ml (0.00-0.50); Glucose* 141 mg/dL (60-115)
[2023-03-21 14:28] LABS: C Reactive Protein* 0.6 mg/dL (0.5-1.0)
[2023-03-21 14:38] LABS: Slide Review Acceptable Review (Acceptable)
[2023-03-21 14:47] LABS: NT Pro B Type NatriureticPept* < 20 pg/mL; Troponin I* < 0.01 ng/mL (0.01-0.04)
[2023-03-21 15:05] VITALS: BP 122/89; PULSE 96; RESP 20; O2SAT 94
== END 2023-03-21 15:10 | disposition home or self-care (01) ==
LOC: ED 13:16
PROVIDERS: Emergency Provider Family Medicine; PCP Family Medicine
DX: M54.12 Radiculopathy, cervical region (principal)
CPT/HCPCS: 36415; 71045; 72141; 80048; 80076; 83880; 84484; 85025; 85379; 86140; 93005; 96372; 99284; 99285; A9270; J1885; J2270

== ENCOUNTER 2023-04-13 08:30 | Outpatient (RCR) | payer BC, SELFPAY | END 2023-08-11 23:59 | disposition home or self-care (01) | PROVIDERS: PCP Family Medicine; Visit Provider Orthopaedic Surgery Sports Medicine | DX: S83.512A Sprain of anterior cruciate ligament of left knee, initial encounter (principal); Z98.890 Other specified postprocedural states; M25.562 Pain in left knee; Z51.89 Encounter for other specified aftercare | CPT/HCPCS: 97110; 97112; 97162; J0690; J1100; J2250; J2371; J2405; J2704; J3010 ==

== ENCOUNTER 2024-02-19 09:38 | Outpatient (CLI) | payer BC, SELFPAY ==
--- OUTSIDE RECORDS SUMMARY | 2024-02-20 10:18 | XMS_ITS | Clinical Summary ---
Author Organization [employer] [facility] Address [place], [place] [address] Care Team Providers Care Rv Servicer Name Role Phone Unavailable Primary Care Provider Unavailabl e Allergies No known active allergies Medications Medication Sig Dispensed Refills Start Date End Date Status SUMAtriptan (IMITREX) 50 mg tabletIndications:Men strual migraine without status migrainosus, not intractable TAKE ONE TO TWO TABLETS BY MOUTH EVERY 2 HOURS NEEDED FOR HEADACHE. MAXIMUM OF 200MG IN 24 HOURS 9 tablet 2 06/01/2017 Active cyclobenzaprine (FLEXERIL) 10 mg tabletIndications:Nec k muscle strain, sequela TAKE ONE TABLET BY MOUTH AT BEDTIME NEEDED FOR MUSCLE SPASM 30 tablet 5 07/18/2017 Active buPROPion (WELLBUTRIN XL) 300 mg Extended-Release tabletIndications:Dep ression with anxiety TAKE 1 TABLET BY MOUTH ONCE DAILY 90 tablet 1 11/21/2017 Active NUVARING vaginal ring 08/23/2017 Act syed DULoxetine (CYMBALTA) 60 mg Delayed-release capsuleIndications:De pression, unspecified depression type,Other mixed anxiety disorders Take 1 capsule by mouth once daily. 90 capsule 1 11/21/2017 Active LORazepam (ATIVAN) 1 mg tabletIndications:Dep ression with anxiety TAKE 1 TABLET BY MOUTH AT BEDTIME NEEDED 30 tablet 05/15/2018 Active Active Problems Problem Noted Date Diagnosed Date Allergic rhinitis 12/31/2013 Depression with anxiety 10/12/2011 Immunizations Name Administration Dates Next Due Influenza,CCIIV4 PRESERV FREE 02/23/2017 Tdap 10/12/2011 Family History * Patient is adopted Medical History Relation Name Comments Heart Disease Mother [place] Other Mother endometriosis, uterus removed Cancer Paternal Aunt Relation Name Status Comments Mother Paternal Aunt Social History Tobacco Use Types Packs/Day Years Used Date Smoking Tobacco: Never Smokeless Tobacco: Never Tobacco Cessation:Counseling Given: Yes Comments:previous social smoker Alcohol Use Standard Drinks/Week Comments Yes 0 (1 standard drink = 0.6 oz pur e alcohol) 1-3 times per week PHQ-2 Answer Date Recorded PHQ-2 Score 3 07/09/2018 Sex and Gender Information Value Date Recorded Sex Assigned at Not on file Gender Identity Not on file Sexual Orientation Not on file Obstetrics History Para Term AB IAB SAB Ectopic Multiple Livin g Live Births 2 2 2 Date Outcome GA Total Labor Labor//3rd Weight Sex Type Anes PTL Monika A1 A5 Name Clin 986 Para M CS-Uns pec 990 Para M CS-Uns pec Last Filed Vital Signs Vital Sign Reading Time Taken Comments Blood Pressure 128/83 05/02/2017 11:12 AM [facility] Pulse 80 05/02/2017 11:12 AM [facility] Temperature 36.7 ??C (98.1 ??F) 01/11/2017 3:02 PM CD T Respiratory Rate - - Oxygen Saturation 97% 03/21/2017 10: 27 AM [facility] Inhaled Oxygen Concentration - - Weight 98.8 kg (217 lb 12.8 oz) 017 11:12 AM [facility] Height 167 cm (5' 5.75) 03/21/2017 10: 27 AM [facility] Body Mass Index 35.42 03/21/2017 10:27 AM [facility] Plan of Treatment Health Maintenance Due Date Last Done Comments HIV for age 15-65 1984 Hepatitis C screening for age 18-79 07/15/1987 Colonoscopy through age 75 2014 BMI (ht and wt on same day) for age 18+ 03/21/2018 03/21/2017, 01/11/2017, 02/16/2016 Mammogram for age 45-75 03/21/2018 03/21/20 17, 02/16/2016, 01/14/2015, Additional history exists Depression screening for age 12+ 11/21/2018 11/21/2017, 11/20/2017, 06/13/2017, Additional history exists Zoster (shingles) series for age 50+ (1 of 2) 07/15/2019 Lipids for age 45-75 02/15/2021 02/16/2016, 11/13/19 12 Tetanus booster 10/11/2021 10/12/2011 Pap test for age 21-65 04/10/2022 9, 04/10/2019, 01/14/2015, Additional history exists COVID-19 vaccine series (2023- season) 2024 Influenza for age 50-64 01/06/2024 02/23/2017 Tdap Completed 10/12/2011 Pneumococcal series for age 6-64 Aged Out No longer eligible based on patient's age to complete this topic Procedures Procedure Name Priority Date/Time Associated Diagnosis Comments [employer] PROFESSOR THIN PREP PAP SCREEN IMAGED Routine 04/10/2019 9:00 AM [facility] XR MAMMO BILAT SCREENING Routine 03/21/2017 11:06 AM [facility] Visit for screening mammogram LIPID PANEL W REFLEX MEASURED LDL Routine 02/16/2016 4:42 PM CDT Screening for lipid disorders from Last 3 Months or Most Recently Relevant to Health Maintenance Results * [employer] PROFESSOR THIN PREP PAP SCREEN IMAGED (04/10/2019 9:00 AM [facility]) Case Report Gynecologic Cytology Report ? Case: [id number] ? Authorizing Provider: ??Kari Parra PA-C ?Collected: ? 04/10/2019 0900 ? Ordering Location: ? [facility] ?Received: ?04/10/2019 1704 ? First Screen: ?Ashish Bueno ? Rescreen: ?Pat Diaz ? Specimen: ?[employer] PROFESSOR ThinPrep Vial Screening, Cervical/Vaginal ? 04/21/2019 12:48 PM [facility] INTERPRETATION/ RESULT NEGATIVE FOR INTRAEPITHELIAL LESION OR MALIGNANCY (NIL) (none) 04/21/2019 12:48 PM [facility] IMEN ADEQUACY Satisfactory for evaluation Endocervical component present 04/21/2019 12:48 PM [facility] HPV REQUEST HPV and PAP 04/21/2019 12:48 PM [facility] Date of LMP 04/04/2019 04/21/2019 12:48 PM [facility] Last Pap Date 04/21/2019 12:48 PM [facility] Comment:02/2016 Last Pap Result NIL 9 12:48 PM [facility] Automated Review Successful 04/21/2019 12:48 PM [facility] Comment:Specimen processed s uccessfully by automated line locator device, ThinPrep Imaging System, [employer] ANCILLARY TESTING [employer] PROFESSOR HPV Ordered, Please see separate report 04/21/2019 12:48 PM [facility] Note The pap test is a screening technique, not a diagnostic procedure. ??It is used primarily to screen for squamous cancers and precursor lesions. ??Published studies have shown that it is subject to both false negative and false positive results. ??The pap test should not be used as the sole means to diagnose or exclude pre-malignant and malignant lesions. Cytology is screened and interpreted at [facility] - [address], [place] [address] and [facility] - [address]; [place] [address] [address] [facility] - [address]; [place] [address] and [facility] [address]; [place] [address] 04/21/2019 12:48 PM [facility] Other (Cervical/Vagina l) 04/10/2019 9:00 AM [facility] 04/10/2019 5:04 PM [facility] August Fidel BUSH PATHOLOGY/CYTOLOGY [facility] [address] [place] [address], [place] * XR MAMMO BILAT SCREENING (03/21/2017 11:06 AM [facility]) Anatomical Region Laterality Modality BREASTS, Breast Left, Breast Right Bilateral Mammography Impressions 03/21/2017 12:25 PM [facility] ??There is no radiographic evidence for malignancy. ??Recommend annual mammograms. A lay language report of this examination will be provided to the patient. MAMMOGRAM ASSESSMENT: ??ACR 1 Negative Narrative 03/21/2017 12:25 PM [facility] XR MAMMO BILAT SCREENING [[id number]] CLINICAL HISTORY: ??This is an asymptomatic 46 y.o. patient. INDICATION FOR EXAM: Mammogram Screening. TECHNIQUE: CC & MLO views were obtained. ??This digital study was evaluated with the assistance of Computer-Aided Detection. COMPARISON FILM: Yes 02/16/16 [facility] 01/14/15 [facility] FINDINGS: ??Mammographically, the breast tissue is heterogeneously dense, which could obscure detection of small masses. There are no dominant masses, suspicious micro calcifications or areas of architectural distortion. Raine JACKSON MAMMO * (ABNORMAL) LIPID PANEL W REFLEX MEASURED LDL (02/16/2016 4:42 PM CDT) CHOLESTEROL,TOTAL 182 100 - 199 mg/dL 02/16/2016 5:11 PM CDT [facility] TRIGLYCERIDES 170(H) <150 mg/dL 02/16/2016 5:11 PM CDT [facility] HDL CHOLESTEROL 49 >40 mg/dL 6 5:11 PM CDT [facility] NON-HDL CHOLESTEROL 133 <145 mg/dl 02/16/2016 5:11 PM CDT [facility] CHOL/HDL RATIO 3.71 <4.50 02/16/2016 5:11 PM CDT [facility] LDL CHOLESTEROL 99 <=130 mg/dL 02/16/2016 5:11 PM CDT [facility] PATIENT STATUS NON-FASTI NG 02/16/2016 5:11 PM CDT [facility] Blood BLOOD SPECIMEN / Unknown Venipuncture / Unknown 02/16/2016 4:42 PM CDT 02/16/2016 4:42 PM CDT Raine JACKSON CHEMISTRY [facility] [address] [place] [address], from Last 3 Months or Most Recently Relevant to Health Maintenance Alia Rivera Workers Comp Self [id number] MELINA GERMAN [id number] [facility] 9 [employer]In[employer] Attn: Edwina Marinelli [address] [place] [id number]
== END 2024-02-19 09:39 | disposition home or self-care (01) ==
LOC: NFLDREF 02-20 10:17
PROVIDERS: PCP Family Medicine; Referring Provider Family Medicine; Visit Provider Family Medicine
DX: Z00.00 Encounter for general adult medical examination without abnormal findings (principal); E78.5 Hyperlipidemia, unspecified; F41.9 Anxiety disorder, unspecified; Z13.9 Encounter for screening, unspecified
CPT/HCPCS: 80053; 80061

== ENCOUNTER 2024-02-26 14:45 | Outpatient (CLI) | payer BC, SELFPAY ==
--- OUTSIDE RECORDS SUMMARY | 2024-02-26 14:49 | XMS_ITS | Clinical Summary ---
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 Name Role Phone Unavailable Primary Care Provider [...] History Relation Name Comments Heart Disease Mother [place] Other Mother endometriosis, uterus removed Cancer Paternal [...] Comments Blood Pressure 128/83 05/02/2017 11:12 AM [employer] Pulse 80 05/02/2017 11:12 AM [employer] Temperature 36.7 ??C (98.1 ??F) 01/11/2017 3:02 PM CD T Respiratory Rate - - Oxygen Saturation 97% 03/21/2017 10: 27 AM [employer] Inhaled Oxygen Concentration - - Weight 98.8 kg (217 lb 12.8 oz) 017 11:12 AM [employer] Height 167 cm (5' 5.75) 03/21/2017 10: 27 AM [employer] Body Mass Index 35.42 03/21/2017 10:27 AM [employer] Plan of Treatment Health Maintenance Due Date [...] Procedure Name Priority Date/Time Associated Diagnosis Comments 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 Case: [id number] ? Authorizing Provider: ??Kari Parra PA-C ?Collected: ? 04/10/2019 0900 ? Ordering Location: ? [facility] ?Received: ?04/10/2019 1704 ? First Screen: ?Ashish Bueno ? Rescreen: ?Pat Diaz ? Specimen: ?ADULT LITERACY TEACHER ThinPrep Vial Screening, Cervical/Vaginal ? 04/21/2019 12:[address] [employer] [address] [facility] INTERPRETATION/ RESULT NEGATIVE FOR INTRAEPITHELIAL LESION OR MALIGNANCY (NIL) (none) 04/21/2019 12:48 PM [facility] IMEN ADEQUACY Satisfactory for evaluation Endocervical component present 04/21/2019 12:[address] [employer] [facility] HPV REQUEST HPV and PAP 04/21/2019 12:[address] [employer] Date of LMP 04/04/2019 04/21/2019 12:[address] [employer] Last Pap Date 04/21/2019 12:48 [address] [employer] Comment:02/2016 Last Pap Result NIL 9 12:48 PM [facility] Automated Review Successful 04/21/2019 12:48 PM [facility] Comment:Specimen processed s uccessfully by automated river expedition guide device, ThinPrep Imaging System, [employer] ANCILLARY TESTING ADULT LITERACY TEACHER HPV Ordered, Please see separate report 04/21/2019 12:48 [address] [employer] Note The pap test [...] lesions. Cytology is screened and interpreted at [facility] - [address], [place] [address] and [facility] - [address]; [place] [address] and [facility] - [address]; [place] [address] and [facility] [address]; [place] [address] 04/21/2019 12:48 PM [employer] [facility] Other (Cervical/Vagina l) 04/10/2019 9:00 AM [employer] 04/10/2019 5:04 PM [employer] August Fidel BUSH PATHOLOGY/CYTOLOGY [facility] [address] [place] [address], [place] * XR MAMMO BILAT SCREENING (03/21/2017 11:06 AM [employer]) Anatomical Region Laterality Modality BREASTS, Breast Left, Breast Right Bilateral Mammography Impressions 03/21/2017 12:25 PM [employer] ??There is no radiographic evidence for malignancy. ??Recommend annual mammograms. A lay language report of this examination will be provided to the patient. MAMMOGRAM ASSESSMENT: ??ACR 1 Negative Narrative 03/21/2017 12:25 PM [employer] XR MAMMO BILAT SCREENING [[id number]] CLINICAL HISTORY: ??This is an asymptomatic 46 y.o. patient. INDICATION FOR EXAM: Mammogram Screening. TECHNIQUE: CC & MLO views were obtained. ??This digital study was evaluated with the assistance of Computer-Aided Detection. COMPARISON FILM: Yes 02/16/[address] [facility] 01/14/[address] [facility] FINDINGS: ??Mammographically, the breast tissue is heterogeneously dense, which could obscure detection of small masses. There are no dominant masses, suspicious micro calcifications or areas of architectural distortion. Raine JACKSON MAMMO * (ABNORMAL) LIPID PANEL W REFLEX MEASURED LDL (02/16/2016 4:42 PM CDT) CHOLESTEROL,TOTAL 182 100 - 199 mg/dL 02/16/2016 5:11 PM CDT [facility] TRIGLYCERIDES 170(H) <150 mg/dL 02/16/2016 5:11 PM CDT [facility] HDL CHOLESTEROL 49 >40 mg/dL 6 5:11 PM CDT [facility] NON-HDL CHOLESTEROL 133 <145 mg/dl 02/16/2016 5:11 PM CDT [facility] CHOL/HDL RATIO 3.71 <4.50 02/16/2016 5:11 PM CDT [facility] LDL CHOLESTEROL 99 <=130 mg/dL 02/16/2016 5:11 PM CDT [facility] PATIENT STATUS NON-FASTI NG 02/16/2016 5:11 PM CDT [facility] Blood BLOOD SPECIMEN / Unknown Venipuncture / Unknown 02/16/2016 4:42 PM CDT 02/16/2016 4:42 PM CDT Raine JACKSON CHEMISTRY [facility] [address] [place] [address], from Last 3 Months or Most Recently Relevant to Health Maintenance Alia Rivera [employer] Self [id number] [address] [id number] [facility] 9 Vendor/Institu tional Attn: Edwina Marinelli [address] [place] [id number]
[2024-02-28 22:56] LABS: HPV Source Cervical; HPV, High Risk by TMA Not Detected
== END 2024-02-26 14:46 | disposition home or self-care (01) ==
PROVIDERS: PCP Family Medicine; Visit Provider Family Medicine
DX: Z00.00 Encounter for general adult medical examination without abnormal findings (principal); Z11.51 Encounter for screening for human papillomavirus (HPV); Z12.4 Encounter for screening for malignant neoplasm of cervix
CPT/HCPCS: 87624; 87625; 88141; 88142

== ENCOUNTER 2024-05-14 15:09 | Outpatient (CLI) | payer BC, SELFPAY ==
--- NOTE | 2024-05-14 15:20 | CRLHL7_ITS ---
For Patients: As a result of the Century Cures Act, medical imaging exams and procedure reports are released immediately into your electronic medical record. You may view this report before your referring provider. If you have questions, please contact your health care provider. BILATERAL SCREENING MAMMOGRAM WITH COMPUTER-AIDED DETECTION AND TOMOSYNTHESIS TECHNIQUE: CC and MLO views were obtained. These mammographic images have been obtained using full-field digital technique. These mammographic images were interpreted with the benefit of computer-aided detection. Breast Tomosynthesis was used in this interpretation. COMPARISON FILM: 01/25/23, 10/31/18, 03/21/17. FINDINGS: There are scattered areas of fibroglandular density. IMPRESSION: There is no radiographic evidence for malignancy. ASSESSMENT: BI-RADS Category 1: Negative RECOMMENDATION: Routine screening mammogram in 1 year. A lay language report of this examination will be provided to the patient. Adam Conley M.D. Diagnostic Radiologist [email or web address] SP/Dictated by: Adam Conley MD @ 05/15/2024 10:11:00 AM (Electronically Signed)
== END 2024-05-14 15:10 | disposition home or self-care (01) ==
LOC: MAMMO 15:09
PROVIDERS: PCP Family Medicine; Visit Provider Family Medicine
DX: Z12.31 Encounter for screening mammogram for malignant neoplasm of breast (principal)
CPT/HCPCS: 77063; 77067

== ENCOUNTER 2024-05-19 14:09 | Outpatient (CLI) | payer BC, SELFPAY | END 2024-05-19 14:10 | disposition home or self-care (01) | PROVIDERS: PCP Family Medicine; Visit Provider Physician Assistant | DX: R23.2 Flushing (principal) | CPT/HCPCS: 83001; 84443 ==

== ENCOUNTER 2025-03-24 16:03 | Outpatient (CLI) | payer BC, SELFPAY | END 2025-03-24 16:04 | disposition home or self-care (01) | PROVIDERS: PCP Family Medicine; Visit Provider Family Medicine | DX: R53.83 Other fatigue (principal); Z13.9 Encounter for screening, unspecified | CPT/HCPCS: 80048; 80076; 85025 ==

== ENCOUNTER 2025-04-17 14:58 | Outpatient (CLI) | payer BC, SELFPAY | END 2025-04-17 14:59 | disposition home or self-care (01) | PROVIDERS: PCP Family Medicine; Visit Provider Physician Assistant Surgical | DX: R11.2 Nausea with vomiting, unspecified (principal); R68.89 Other general symptoms and signs | CPT/HCPCS: 80076; 82150; 83690 ==